=== PATIENT | male | born 1960 | race Caucasian/White ===

== ENCOUNTER 2016-08-29 13:11 | Inpatient (IN) | payer BC ==
--- NOTE | ~2016-08-29 | DS ---
Discharge Summary [facility] [address] [place]. [address] NAME: STEPHAN SCOTT : 62 STATUS : DIS IN PAT#: [id number] AGE: 56 ADM/REG DATE : 08/29/16 MR#: [id number] REPORT SERV DATE: 09/03/16 DICTATED BY: MAYURI PANDYA DATE: 09/03/16 REPORT STATUS : Draft TRANSCRIBED BY: MODL DATE: 09/03/16 ADMISSION DATE: 08/29/2016 DISCHARGE DATE: 09/03/2016 CONSULTING PHYSICIAN: Dr. George for surgery. FINAL DIAGNOSES: 1. Uncontrolled diabetes, improved. 2. Right toe cellulitis with nondisplaced fracture of the first phalanx. 3. Chronic obstructive pulmonary disease. 4. Coronary artery disease with history of coronary artery bypass grafting. 5. Noncompliance. 6. Tobacco abuse. 7. Depression, anxiety, and mood disorder. 8. Gastroesophageal reflux disease and peptic ulcer disease. 9. Hyponatremia, improved. DIAGNOSTIC EXAMS: Chest x-ray showing prior CABG, otherwise negative portable chest. CAT scan of the abdomen and pelvis showing no acute GI or obstruction, some mild perinephric stranding, question significant, diverticulosis of the sigmoid and descending colon with some smooth muscle hypertrophy, prostate mildly enlarged. Lumbar spine showing normal findings. Right toe x-ray mild degenerative change. No change from December 11. MRI showing cellulitis with no evidence of osteomyelitis or abscess. Possible foreign body in the skin adjacent into the second distal phalanx. Nondisplaced fracture intra-articular distal first proximal phalanx. Mild marrow edema, likely subacute, tenosynovitis flexor hallucis and flexor digitorum tendons. HOSPITAL COURSE: Please refer to the H and P done by Dr. Lara dated on 08/29/2016. Briefly, this is a 56-year-old male who comes in with weakness. The patient was recently here and discharged, and at that time, the patient was given prescriptions for Lortab. It was written in the note of Dr. Hare that the patient got that prescription from [place] in 06/30/2016. On 06/16/2016, 60 tablets of oxycodone, and when he got discharged 07/08/2016, the patient had 14 pills of Lortab 7.5. The patient is also on Seroquel and Klonopin as prescribed by Dr. Lai at that time. The patient reported of feeling dizzy and falling for the past three days and now having severe pain in his back, went to the emergency room and was found to have elevated sugars. The patient was admitted by Dr. Lara, and we adjusted his medications. We got educator senior clinical involved, and we were able to get that the patient is very noncompliant with his diabetic medications and his other medications. When we placed him back on his blood pressure medication, we found that his blood pressure goes down. He also refused to quit smoking, and he kept on going out of his room without any significant pain. Yet when he comes back to his room he wants his pain medication adjusted. The patient was complaining about his right foot, and we did all the above tests, and it shows that the patient probably has subacute fracture and tenosynovitis of the right first toe. We got Dr. Herrera involved who was being covered by Dr. George and they do not believe that any surgery is needed, but agreed with antibiotics for the cellulitis. Yet, despite all this pain that the patient is subjectively telling me, he is able to walk around Discharge Summary [place] [id number] [place]. [address] NAME: STEPHAN SCOTT : 62 STATUS : DIS IN [facility]#: [id number] AGE: 56 ADM/REG DATE : 08/29/16 MR#: [id number] REPORT SERV DATE: 09/03/16 DICTATED BY: MAYURI PANDYA DATE: 09/03/16 REPORT STATUS : Draft TRANSCRIBED BY: RANDY DATE: 09/03/16 even out of the floor without any problems. We got clearance from surgery for discharge, so we discharged the patient with the above diagnoses. He will be on the following medications aspirin 81 mg a day, Lipitor 40 mg at bedtime, Plavix 75 mg a day, Neurontin 600 mg three times a day, NovoLog per sliding scale, Levemir 50 units twice a day, multivitamin once a day, Protonix 40 mg a day, Klonopin 1 mg twice a day, metformin 1000 mg twice a day, Symbicort two puffs twice a day p.r.n. albuterol two puffs as needed, Coreg 25 mg twice a day, nitroglycerin p.r.n., and a prescription for Duricef 1 g p.o. b.i.d. for one more week. He will be off his Monoket and lisinopril. He will follow up with Dr. March. Hopefully, that he was adherent on his medications and followup, but basing from his track record his chances for readmission is quite high. BETH/RANDY Mayuri Pandya M.D. / [id number] CC: Gail Gan MD
--- NOTE | ~2016-08-29 | HP ---
History And Physical [place] [address] [facility] [place]. [address] NAME: STEPHAN LEMONS : 62 STATUS : ADM Jd PAT#: [id number] AGE: 56 ADM/REG DATE : 08/29/16 MR#: [id number] REPORT SERV DATE: 08/29/16 DICTATED BY: DATE: REPORT STATUS : Draft TRANSCRIBED BY: MODL DATE: 08/29/16 DATE OF ADMISSION: 08/29/2016 The patient is admitted to the [facility] Hospitalist Service. CHIEF COMPLAINT: Weakness, falls, pain. HISTORY OF PRESENT ILLNESS: Mr. Lemons is a 56-year-old white male with a history of uncontrolled diabetes and multiple admissions for sequelae thereof. He presents to the emergency department complaining of multiple falls over the past three days. He reports extreme pain from these falls, particularly in his lumbar spine and bilateral buttocks. He has been largely bedbound because of the pain for the past three days, but noticed that when he would attempt to ambulate to the kitchen to prepare meals for himself, he would have recurrent falls. He was also noticing some left lower quadrant pain and possible hematochezia. He has been extremely thirsty and also has become incontinent of urine, which is a new issue for him. He has had some nausea and vomiting, although currently is hungry and demanding food in the emergency department. He denies any chest pain or shortness of breath. He has not had any fevers or chills. He has had some left lower quadrant pain, but denies any changes in his bowel movements, such as constipation, diarrhea, or hematochezia or melena. In the emergency department, his blood sugar is 686, and he is referred to the Hospitalist Service for management. The patient was questioned extensively about his recent insulin usage and potential noncompliance as he does have a history of this. However, he states currently he is following up with Dr. Elliot March at [facility] and taking his insulins and metformin as prescribed. REVIEW OF SYSTEMS: Full 14-point review of systems is negative, except as dictated in the history of present illness. PAST MEDICAL HISTORY: Extensive and includes: 1. Uncontrolled insulin-dependent diabetes mellitus type 2 with hemoglobin A1c values ranging from 11-14 over the past year. 2. COPD with ongoing tobacco dependence. 3. Coronary artery disease with history of CABG in 2006 and history of multiple percutaneous interventions. He has a history of chronically occluded LAD graft. 4. Depression and anxiety-treated by Dr. Klaus Lai during recent admission. 5. Gastroesophageal reflux disease. 6. Congestive heart failure. 7. Peptic ulcer disease. 8. Scoliosis. 9. Nephrolithiasis and prior lithotripsy. 10.History of diverticulitis. History And Physical [address] [address] NAME: STEPHAN LEMONS : 62 STATUS : ADM Jd PAT#: [id number] AGE: 56 ADM/REG DATE : 08/29/16 MR#: [id number] REPORT SERV DATE: 08/29/16 DICTATED BY: DATE: REPORT STATUS : Draft TRANSCRIBED BY: MODVicki DATE: 08/29/16 11.Frequent urinary tract infections. 12.Bilateral lower extremity ulcers-seen previously by Dr. Herrera. 13.History of gastroparesis. PAST SURGICAL HISTORY: Includes CABG, percutaneous interventions, and prior incision and drainage of a right foot abscess. ALLERGIES: INCLUDE IV CONTRAST, MORPHINE, NONSTEROIDAL ANTI-INFLAMMATORY DRUGS. MEDICATIONS: Full medication list is pending. Off the top of his head, the patient recalls that he takes Plavix and aspirin as well as Lantus 50 units subcutaneously twice a day. Humalog 25 units subcutaneously t.i.d. and metformin 1000 mg p.o. twice a day. SOCIAL HISTORY: The patient has been recently homeless, although currently is living with a roommate. He has been twice. He has three children, range in age from 27-38 years old, but he is not in close contact with any of them. He is a retired registered physical therapist. He ambulates with assistance of a cane. FAMILY HISTORY: Pertinent for diabetes and heart disease. His mother of leukemia when the patient was 19 years old. PHYSICAL EXAMINATION: VITAL SIGNS: Blood pressure 113/81, temperature 98.1, pulse 102, respirations 18, and oxygen saturations 98% on room air. GENERAL: This is a thin, chronically ill-appearing, poorly groomed white male, in no acute distress. Alert and oriented in three dimensions, requesting food and pain medications. HEENT: Normocephalic, atraumatic. Pupils are equally round and reactive to light. No scleral icterus. No conjunctival pallor. Oropharynx is dry with tacky mucosa, but no posterior pharyngeal erythema nor exudate. Poor dentition. NECK: Supple with no jugular venous distention. No lymphadenopathy. No bruits. CARDIOVASCULAR: Regular tachycardia. No murmurs, rubs, or gallops. LUNGS: Clear to auscultation bilaterally. No wheezes, crackles nor rhonchi. ABDOMEN: Soft with guarding in the left lower quadrant, but no tenderness to palpation or ulcer in the abdomen. Decreased bowel sounds x4 quadrants, but present. No obvious hepatosplenomegaly or suggestion of ascites. SKIN: Decreased skin turgor. No rash or skin breakdown. Multiple tattoos. EXTREMITIES: No cyanosis, clubbing, or edema. Marked muscle atrophy and wasting of the lower extremities. NEUROLOGIC: Cranial nerves II through XII were tested and are intact. Deep tendon reflexes 2+ bilateral in brachioradialis and patellar tendons. Sensation is diminished in bilateral lower extremities to fine touch and proprioception. Strength testing is limited by pain, particularly in the lumbar spine, and the patient has a positive straight leg raise test bilaterally. LABORATORY DATA: Urinalysis is negative, except for trace ketones. CBC shows white count of 11.6, hemoglobin 14.5, hematocrit 42.2, platelets 12.7. Comprehensive metabolic panel with sodium 127, potassium 4.3, chloride 91, bicarbonate 26, BUN 16, creatinine 1.2, glucose 680, History And Physical [place] [id number] [facility] [place]. [address] NAME: STEPHAN LEMONS : 62 STATUS : ADM Jd PAT#: [id number] AGE: 56 ADM/REG DATE : 08/29/16 MR#: [id number] REPORT SERV DATE: 08/29/16 DICTATED BY: DATE: REPORT STATUS : Draft TRANSCRIBED BY: MODL DATE: 08/29/16 calcium 8.6, total protein normal, albumin 2.6. Liver enzymes normal with the exception of alkaline phosphatase elevated at 167. IMPRESSION: 1. Uncontrolled diabetes with hyperglycemia, no evidence of diabetic ketoacidosis. 2. Hyponatremia due to hyperglycemia. 3. Recent increase in falls, with back pain and tenderness to palpation of the lumbar spine-rule out vertebral fracture or possible spinal stenosis. 4. New urinary incontinence-suspect due to hyperglycemia or possibly neurogenic bladder. Evaluate for spinal etiologies above. 5. Left lower quadrant pain with leukocytosis and history of diverticulitis. Also possible history of hematochezia preceding admission per patient-rule out diverticulitis at present. 6. Extensive medical history as outlined above. PLAN: 1. The patient is admitted in observation status to [address] [place] [address], [address] Dr. Stefano Lara. 2. IV fluids and reinstitute long-acting and short-acting insulins. Check a hemoglobin A1c. 3. Labs with electrolyte replacement as hyperglycemia is corrected. 4. Low dose of oral pain medications-tramadol and Percocet. 5. Check plain films of the lumbar spine. 6. Check CT of the abdomen and pelvis. 7. We will reconcile remaining home medications when pharmacy has compiled the list. JACOBO/RANDY Stefano Lara M.D. / [id number] CC: Gail Schmitt MD
[~2016-08-29 13:11] MED LIST: *UNABLE3; ADVAIR250 INH; AMIT50 PO; AMOXIL500 MG PO; ASA5GR PO; ASAB PO; ASPIRIN; AT25 PO; AUG875 PO; CELEXA20 PO; CIP5 PO; COREG12 PO; COREG25 PO; DIL2TAB; DIL2TAB PO; DURA50 TOP; EFFIENT10 PO; FLAG500TAB PO; GLUCOPHAGE1000 MG PO; GLUCPH PO; HALF81 PO; HUMALOG SC; HUMULIN R1 ML SC; IMDUR60 PO; INSNOV7030 SC; ISORDIL10 PO; ISORDTITRA PO; ISOSORB DIN30 MG PO; ISOSORBIDE PO; KLONO1 PO; KLONO2 PO; LANTUS SC; LEVAQUIN750 MG PO; LEVEMFLXPN SC; LEVEMIR SC; LEVSINTAB PO; LEVSINTAB PO/SL; LIOR10 PO; LIPITOR PO; LIPITOR10 PO; LIPITOR20 PO; LIPITOR40 PO; LISINOPRIL; LISINOPRIL PO; LOP100 PO; LOP25 PO; LOP50 PO; LORTAB10 PO; LYRICA75 PO; METAMUCIL CAN7 OZ; METAMUCIL CAN7 OZ PO; METHOC750B PO; MONOKET20 PO; MULTIVIT/MIN PO; MULTIVITAMI1 PO; MVI PO; NEUR300 PO; NEUR600 PO; NEXIUM40 PO; NITROQUICK0.4 MG SL; NITROSTAT0.4 MG PO; NITROSTAT0.4 MG SL; NORCO1 TA1 PO; NORCO1 TA2 PO; NORCO1 TAB PO; NOVOLOG SC; PCET PO; PEP20 PO; PERCOCET1 TA4 PO; PLAVIX PO; PR25 PO; PRAVAC PO; PRIN10 PO; PRIN2.5 PO; PRIN20 PO; PRIN5 PO; PROAIR HFA INH; PROVHFA INH; RANEXA1000 MG PO; ROXICODONE15 MG PO; SEROQUEL50 MG PO; SUCR PO; SYMBICORT 160/41 INH INH; SYMBICORT 80/4.1 INH INH; T PO; TRAZODONE150 MG PO; TRICOR145 PO; ULTRAM50 PO; XANAX XR1 MG PO; XANAX1 MG PO; ZESTRIL10 MG PO; ZESTRIL20 MG PO; ZOCOR20 PO; ZOCOR40 PO; ZOFRAN4 PO; ZYVOXPO PO; [UNRECOGNIZED DRUG - CODE] T; [UNRECOGNIZED DRUG - CODE] TOP; [UNRECOGNIZED DRUG - OTHER] PO
[2016-08-29 15:23] LABS: ASCORBIC ACID (UR NOT ORDER) NEG (NEG); BILIRUBIN, URINE NEGATIVE (NEG); ER URINALYSIS TAT 0 Hrs 12 Mins; KETONE, URINE TRACE MG/DL (NEG); LEUKOCYTE ESTERASE(NOT OR NEG (NEG); NITRITE (URINE) NEG (NEG); WBC (NOT ORDERED) (RFLEX) 5 (0-5)
[2016-08-29 15:26] LABS: BASOPHILS 0.2 %; BASOPHILS ABSOLUTE 0.02 10/3/uL (0.0-0.16); EOSINOPHILS 0.1 %; EOSINOPHILS ABSOLUTE 0.01 10/3/uL (0.0-0.53); HEMATOCRIT 42.2 % (40.0-51.0); HEMOGLOBIN 14.5 g/dL (13.6-17.8); IMMATURE GRANULOCYTES 0.3 %; IMMATURE GRANULOCYTES ABSOLUTE 0.04 10/3/uL (0.0-0.11); LYMPHOCYTES 8.9 %; LYMPHOCYTES ABSOLUTE 1.03 10/3/uL (0.67-4.30); MEAN CORPUS HGB CONC 34.4 g/dL (32.0-36.0); MEAN CORPUSCULAR HEMOGLOB 30.7 pg (26.0-34.0); MEAN CORPUSCULAR VOLUME 89.2 fL (80-100); MONOCYTES 5.2 %; NEUTROPHILS 85.3 %; NEUTROPHILS ABSOLUTE 9.88 10/3/uL (2.02-8.40); PLATELET COUNT 228 10/3/uL (150-400); RBC DISTRIBUTION WIDTH 12.7 % (12.0-16.0); RED CELL COUNT 4.73 10/6/uL (4.7-6.1)
[2016-08-29 15:27] LABS: ER CBC TAT 0 Hrs 21 Mins; MANUAL DIFF NO %; WHITE BLOOD CELLS 11.6 10/3/uL (4.5-10.5)
[2016-08-29 15:35] LABS: CALCIUM, SERUM 8.6 MG/DL (8.5-10.4); CO2 (CARBON DIOXIDE) 26 MMOL/L (24-34); CREATININE 1.21 MG/DL (0.70-1.30); GFR AFRICAN AMERICAN 78 ML/MIN (>=60); GFR NON AFRICAN AMERICAN 67 ML/MIN (>=60); POTASSIUM, SERUM 4.3 MMOL/L (3.5-5.3); SGOT(AST) 7 U/L (5-40); SGPT(ALT) 17 U/L (5-65); TOTAL BILIRUBIN 0.4 MG/DL (0-1.2); TOTAL PROTEIN 7.4 G/DL (6.0-8.5)
[2016-08-29 15:38] LABS: A/G RATIO 0.5 (0.7-1.9); ALBUMIN 2.6 G/DL (3.5-5.0); ALKALINE PHOSPHATASE 167 U/L (45-117); BUN (BLOOD UREA NITROGEN) 16 MG/DL (6-23); CHLORIDE, SERUM 91 MMOL/L (96-112); GLOBULIN 4.8 G/DL (2.5-4.1); GLUCOSE, SERUM 680 MG/DL (60-99); SODIUM, SERUM 127 MMOL/L (135-148)
[2016-08-29] MEDS ORDERED: PROTONIX PO (16:49)
[2016-08-29] MEDS ORDERED: SYMBICORT 80/4.1 INH INH (16:52)
[2016-08-29] MEDS ORDERED: MONOKET20 PO (16:56)
[2016-08-29] MEDS ORDERED: COREG25 PO (16:57)
[2016-08-29] MEDS ORDERED: NITROSTAT0.4 MG SL (16:57)
[2016-08-30 05:34] LABS: BASOPHILS 0.2 %; BASOPHILS ABSOLUTE 0.02 10/3/uL (0.0-0.16); HEMOGLOBIN 11.6 g/dL (13.6-17.8); IMMATURE GRANULOCYTES 0.4 %; IMMATURE GRANULOCYTES ABSOLUTE 0.04 10/3/uL (0.0-0.11); LYMPHOCYTES 13.8 %; MEAN CORPUS HGB CONC 34.2 g/dL (32.0-36.0); MEAN CORPUSCULAR HEMOGLOB 30.1 pg (26.0-34.0); MEAN CORPUSCULAR VOLUME 88.1 fL (80-100); MEAN PLATELET VOLUME 10.8 fL (9.2-13.0); MONOCYTES ABSOLUTE 0.71 10/3/uL (0.21-1.20); NEUTROPHILS 77.6 %; NEUTROPHILS ABSOLUTE 7.85 10/3/uL (2.02-8.40); PLATELET COUNT 232 10/3/uL (150-400); RBC DISTRIBUTION WIDTH 12.7 % (12.0-16.0); RED CELL COUNT 3.85 10/6/uL (4.7-6.1); WHITE BLOOD CELLS 10.1 10/3/uL (4.5-10.5)
[2016-08-30 05:36] LABS: HEMATOCRIT 33.9 % (40.0-51.0); MANUAL DIFF NO %
[2016-08-30 05:48] LABS: BUN (BLOOD UREA NITROGEN) 16 MG/DL (6-23); CALCIUM, SERUM 8.2 MG/DL (8.5-10.4); CHLORIDE, SERUM 99 MMOL/L (96-112); CO2 (CARBON DIOXIDE) 24 MMOL/L (24-34); CREATININE 1.07 MG/DL (0.70-1.30); GFR AFRICAN AMERICAN 90 ML/MIN (>=60); GFR NON AFRICAN AMERICAN 78 ML/MIN (>=60); POTASSIUM, SERUM 3.9 MMOL/L (3.5-5.3); SODIUM, SERUM 132 MMOL/L (135-148)
[2016-08-30 05:50] LABS: CPK 105 U/L (0-200); GLUCOSE, SERUM 431 MG/DL (60-99)
[2016-08-30 07:08] LABS: SED RATE 92 MM/HR (0-15)
[2016-08-31 06:56] LABS: BASOPHILS 0.4 %; BASOPHILS ABSOLUTE 0.03 10/3/uL (0.0-0.16); EOSINOPHILS 2.1 %; EOSINOPHILS ABSOLUTE 0.18 10/3/uL (0.0-0.53); HEMATOCRIT 33.7 % (40.0-51.0); HEMOGLOBIN 11.4 g/dL (13.6-17.8); IMMATURE GRANULOCYTES 0.5 %; IMMATURE GRANULOCYTES ABSOLUTE 0.04 10/3/uL (0.0-0.11); LYMPHOCYTES 17.9 %; MEAN CORPUS HGB CONC 33.8 g/dL (32.0-36.0); MEAN CORPUSCULAR HEMOGLOB 30.3 pg (26.0-34.0); MEAN CORPUSCULAR VOLUME 89.6 fL (80-100); MEAN PLATELET VOLUME 10.9 fL (9.2-13.0); MONOCYTES 7.5 %; MONOCYTES ABSOLUTE 0.63 10/3/uL (0.21-1.20); NEUTROPHILS 71.6 %; PLATELET COUNT 223 10/3/uL (150-400); RBC DISTRIBUTION WIDTH 12.7 % (12.0-16.0); RED CELL COUNT 3.76 10/6/uL (4.7-6.1); WHITE BLOOD CELLS 8.4 10/3/uL (4.5-10.5)
[2016-08-31 06:57] LABS: MANUAL DIFF NO %
[2016-08-31 07:23] LABS: A/G RATIO 0.5 (0.7-1.9); ALBUMIN 2.1 G/DL (3.5-5.0); BUN (BLOOD UREA NITROGEN) 17 MG/DL (6-23); CALCIUM, SERUM 8.1 MG/DL (8.5-10.4); CHLORIDE, SERUM 97 MMOL/L (96-112); CO2 (CARBON DIOXIDE) 21 MMOL/L (24-34); CREATININE 1.27 MG/DL (0.70-1.30); GFR AFRICAN AMERICAN 73 ML/MIN (>=60); GFR NON AFRICAN AMERICAN 63 ML/MIN (>=60); GLOBULIN 4.4 G/DL (2.5-4.1); POTASSIUM, SERUM 4.5 MMOL/L (3.5-5.3); SGOT(AST) 12 U/L (5-40); SGPT(ALT) 15 U/L (5-65); SODIUM, SERUM 129 MMOL/L (135-148); TOTAL BILIRUBIN 0.2 MG/DL (0-1.2); TOTAL PROTEIN 6.5 G/DL (6.0-8.5)
[2016-08-31 07:24] LABS: ALKALINE PHOSPHATASE 142 U/L (45-117); GLUCOSE, SERUM 550 MG/DL (60-99)
[2016-08-31 15:48] LABS: PROCALCITONIN 0.16 ng/mL (<0.5)
[2016-09-01 07:38] LABS: BUN (BLOOD UREA NITROGEN) 15 MG/DL (6-23); CALCIUM, SERUM 8.4 MG/DL (8.5-10.4); CHLORIDE, SERUM 108 MMOL/L (96-112); CO2 (CARBON DIOXIDE) 25 MMOL/L (24-34); CREATININE 1.01 MG/DL (0.70-1.30); GFR AFRICAN AMERICAN 97 ML/MIN (>=60); GFR NON AFRICAN AMERICAN 83 ML/MIN (>=60); GLUCOSE, SERUM 202 MG/DL (60-99); POTASSIUM, SERUM 4.1 MMOL/L (3.5-5.3); SODIUM, SERUM 141 MMOL/L (135-148)
[2016-09-03] MEDS ORDERED: SEROQUEL50 MG PO (08:52)
[2016-09-03] MEDS ORDERED: DURICEF PO (08:54)
== END 2016-09-03 10:59 | disposition home or self-care (01) | DRG 638 ==
LOC: ER 13:11 → 5SO 16:58
PROVIDERS: Emergency Medicine; Hospitalist; Internal Medicine
DX: E11.65 Type 2 diabetes mellitus with hyperglycemia (principal); E87.1 Hypo-osmolality and hyponatremia; I50.9 Heart failure, unspecified; N39.0 Urinary tract infection, site not specified; L03.031 Cellulitis of right toe; Z91.19 Patient's noncompliance with other medical treatment and regimen; S92.401B Displaced unspecified fracture of right great toe, initial encounter for open fracture; J44.9 Chronic obstructive pulmonary disease, unspecified; F17.210 Nicotine dependence, cigarettes, uncomplicated; I25.10 Atherosclerotic heart disease of native coronary artery without angina pectoris; F32.9 Major depressive disorder, single episode, unspecified; F41.9 Anxiety disorder, unspecified; K21.9 Gastro-esophageal reflux disease without esophagitis; M41.9 Scoliosis, unspecified; M65.9 Synovitis and tenosynovitis, unspecified; Z95.1 Presence of aortocoronary bypass graft; Z87.442 Personal history of urinary calculi; Z91.81 History of falling; Z87.440 Personal history of urinary (tract) infections; Z91.041 Radiographic dye allergy status; Z88.5 Allergy status to narcotic agent; Z88.8 Allergy status to other drugs, medicaments and biological substances; Z79.02 Long term (current) use of antithrombotics/antiplatelets; Z79.82 Long term (current) use of aspirin; Z79.4 Long term (current) use of insulin; Z79.84 Long term (current) use of oral hypoglycemic drugs
CPT/HCPCS: 71010; 72100; 73660-RT; 73720-RT; 74176; 80048; 80053; 81001; 82550; 82962; 83036; 83735; 84145; 85025; 85652; 93005; 96374; 99285; A9270-GY; A9577; J0690; J2405; J2800

== ENCOUNTER 2016-11-28 15:01 | Inpatient (IN) | payer BC ==
--- NOTE | ~2016-11-28 | HP ---
History And Physical [address] [place]. [address] NAME: STEPHAN SCOTT : 62 STATUS : ADM IN [facility]#: [id number] AGE: 56 ADM/REG DATE : 11/28/16 MR#: [id number] REPORT SERV DATE: 11/29/16 DICTATED BY: ESPERANZA DIAS DATE: 11/28/16 REPORT STATUS : Draft TRANSCRIBED BY: MODVicki DATE: 11/28/16 DATE OF ADMISSION: 11/28/2016 CHIEF COMPLAINT: A 56-year-old male presenting with left leg swelling and boil, also chest pain. HISTORY OF PRESENT ILLNESS: The patient's history was obtained through an interview with the patient, coupled with review of [facility] medical records. About five days, the patient has had a left calf boil arise, it has become increasingly painful. He wonders if he had a spider bite that led to this. He describes it as an aching, throbbing quality, that "hurts like hell." He cannot bear weight now, 9/10 severity that is constant. Then, on the day prior to admission, developed chest pain as well. He has a constant pressure like discomfort in the middle of his chest, but then he also has a severe sharp pain, "like a knife going through me" from middle of his chest to his left shoulder blade exacerbated by breathing. He has a 10/10 pain that is sharp. In his chest, he has dyspnea on exertion, diaphoresis, but no fevers or chills. He has had significant nausea, but only one episode of vomiting. He admits his blood sugars are poorly controlled with most blood sugars between 250 and 350. REVIEW OF SYSTEMS: Otherwise, a 14-point review of systems was obtained and was negative. PAST MEDICAL HISTORY: 1. Coronary artery disease, status post multiple stents, CABG in 2006, and occluded graft in 2011. 2. COPD. Congestive heart failure. 3. Nephrolithiasis with history of lithotripsy. 4. Peptic ulcer disease. 5. Gastroparesis. 6. Diabetes. Hemoglobin A1c of 14.7 in August 2016. 7. Diverticulitis. 8. Depression and anxiety. 9. Headaches. 10.Hypertension. 11.Elevated cholesterol. 12.Scoliosis. 13.Bilateral leg ulcers. PAST SURGICAL HISTORY: History And Physical [address] [place]. [address] NAME: STEPHAN SCOTT : 62 STATUS : ADM IN PAT#: [id number] AGE: 56 ADM/REG DATE : 11/28/16 MR#: [id number] REPORT SERV DATE: 11/29/16 DICTATED BY: ESPERANZA DIAS DATE: 11/28/16 REPORT STATUS : Draft TRANSCRIBED BY: MODL DATE: 11/28/16 1. CABG in 2006. 2. Right foot abscess drainage by Dr. Herrera. ALLERGIES: NONSTEROIDAL ANTI-INFLAMMATORY DRUGS, IV CONTRAST, AND MORPHINE. SOCIAL HISTORY: The patient is a smoker. Does not drink alcohol. He is homeless. Living in a tent right now in [place], [place]. Retired [employer]. Ambulates with a cane. Has three children. He has been a x2. FAMILY HISTORY: Diabetes, heart disease. Mother of leukemia when patient was only 19 years old. CURRENT MEDICATIONS: Include albuterol inhaler, aspirin 325 mg p.o. daily, Symbicort inhaled twice a day, Rolaids, Coreg 50 mg p.o. b.i.d., Klonopin 1 mg p.o. b.i.d., Plavix 75 mg p.o. daily, vitamin B12, Neurontin 600 mg p.o. t.i.d., Lantus 25 units subcutaneous twice a day, sliding-scale insulin, 25 units of Humalog with each meal as well, isosorbide mononitrate 20 mg p.o. b.i.d., lisinopril 20 mg p.o. daily, metformin 1000 mg p.o. b.i.d., Reglan 10 mg before each meal, multivitamin, Roxicodone 15 mg p.o. b.i.d., Protonix 40 mg p.o. daily, Phenergan, cholesterol medication, and Ambien at bedtime. PHYSICAL EXAMINATION: VITAL SIGNS: Temperature 98.0, pulse 110, blood pressure 139/77, respiratory rate 18, and O2 saturation 97% on room air. GENERAL: A pleasant, cooperative male, in evidence of distress secondary to his leg pain. HEENT: Pupils equal, round, and reactive to light. No conjunctival pallor. No scleral icterus. Nares are patent. Oropharynx is clear of obstruction. Moist mucous membranes. NECK: Trachea midline. No thyromegaly. LYMPH: No cervical lymphadenopathy. No supraclavicular lymphadenopathy. No inguinal lymphadenopathy. RESPIRATORY: Clear to auscultation at bases. No wheezes, rales, or rhonchi. Normal respiratory effort. CARDIOVASCULAR: Tachycardic. Regular rhythm. No murmurs, rubs, or gallops. The patient has swelling and edema around his left leg out of proportion to his right. ABDOMEN: Soft, nontender, nondistended. Normal bowel sounds auscultated throughout. No hepatosplenomegaly. DERMATOLOGICAL: Behind patient's left calf, there is about a 2-3 cm diameter raised erythematous boil with underlying fluctuance which could be consistent with abscess formation. It is very tender to palpation. No purulent drainage. Otherwise, warm, dry extremities. No pallor. No cyanosis. PSYCHIATRIC: Normal affect. Good mood. Alert and oriented x3. LABORATORY DATA: White blood cell count 7.8, hemoglobin 14, hematocrit 43, and platelets 325. Sodium 138, potassium 4.6, chloride 104, bicarb 25, BUN 15, creatinine 1.13, glucose 441, troponin 0.04. INR 0.9. Urine drug screen negative. Urinalysis negative for infection. History And Physical [address] [address] NAME: STEPHAN SCOTT : 62 STATUS : ADM IN [facility]#: [id number] AGE: 56 ADM/REG DATE : 11/28/16 MR#: [id number] REPORT SERV DATE: 11/29/16 DICTATED BY: ESPERANZA DIAS DATE: 11/28/16 REPORT STATUS : Draft TRANSCRIBED BY: RANDY DATE: 11/28/16 STUDIES: 1. Chest x-ray by my own evaluation shows no acute cardiopulmonary process. 2. CT scan of the abdomen and pelvis shows hepatomegaly but nothing acute. ASSESSMENT AND PLAN: 1. Left calf abscess and cellulitis. Place on IV vancomycin. IV Zosyn. Consult Dr. Herrera, surgeon. 2. Chest pain. I would like to check a stat V/Q scan (an allergy to IV contrast) and also Doppler ultrasound of left lower extremity to rule out blood clots. Start empiric Lovenox therapeutic dosing now. If negative evaluation for pulmonary embolism, consider nuclear cardiac stress test (?). 3. Uncontrolled diabetes. Hemoglobin A1c of 14.7 in August 2016. Continue basal insulin, premeal insulin, and aggressive sliding scale insulin. 4. Homelessness. KPL/MODL Esperanza Dias M.D. / [id number] CC: MD Roberto Jones Jr., M.D.
--- NOTE | ~2016-11-28 | DS ---
Discharge Summary [facility] [address] [place]. [address] NAME: STEPHAN SCOTT : 62 STATUS : DIS IN PAT#: [id number] AGE: 56 ADM/REG DATE : 11/28/16 MR#: [id number] REPORT SERV DATE: 12/06/16 DICTATED BY: MAYURI HOLBROOK DATE: 12/03/16 REPORT STATUS : Draft TRANSCRIBED BY: MODVicki DATE: 12/03/16 ADMISSION DATE: 11/28/2016 DISCHARGE DATE: 12/03/2016 CONSULTANTS: Jay Herrera M.D., Wound Surgeon. DISCHARGE DIAGNOSES: 1. Abscess, left calf with methicillin sensitive Staph aureus, recurrent. 2. Drug-seeking behavior with a history of amphetamine abuse. 3. Mood disorder. 4. Superficial vein thrombosis, right leg. 5. Diabetes mellitus type 2 with A1c 11.5% and peripheral neuropathy. 6. Chronic obstructive pulmonary disease. 7. Previous renal stones, treated with ESWL. 8. Chronic pain syndrome involving back, abdomen, and neuropathy. 9. History of coronary disease and bypass. 10.Status post atypical chest pain. HISTORY: This patient presented to the emergency room at [facility] with complaints of chest pain and an abscess/boil on his left calf. The patient has had several prior hospitalizations here in the past for this left calf and has had incision and drainage with Dr. Jay Herrera previously. He also complained of a knife-like pain in the middle of his chest going through to his left shoulder blade exacerbated by taking a deep breath. He has a history of coronary bypass in 2006. He was referred to our team for inpatient care. Chest x-ray on admission only showed evidence of previous sternotomy. The ER did a CT scan of the abdomen and pelvis, which revealed no acute abnormalities. There is nonspecific hepatomegaly and a stable 9 mm dystrophic calcification on the anterior cortex of the upper pole of the left kidney. Our admitting partner sent him for a V/Q scan that was within normal limits. His cardiac enzymes were 0.04, 0.04, then went up to slightly elevated at 0.05, then back to normal at 0.03. Nuclear stress test on 11/30/2016, showed no ischemia, ejection fraction estimated to be at 47%. The patient's EKG revealed sinus tachycardia with some nonspecific T-wave abnormalities. The patient receive antibiotic coverage for the left leg abscess that initially included a combination of intravenous vancomycin and Zosyn. He was seen by Dr. Jay Herrera, who did incision and drainage of that left calf abscess on 11/30/2016. Culture grew out methicillin sensitive Staphylococcus aureus as it has on the last three times, it was cultured back in March and April of 2016. Dr. Herrera indicated that he felt the wound was making very good progress, wanted just to have local wound care, and follow him back in the [facility] within the week. The patient also had a bilateral venous Doppler on 11/29/2016, which showed no abnormalities in the left leg, but there was a superficial venous thrombus in the right leg in the short saphenous vein. Repeat venous Doppler three days later revealed stable small superficial Discharge Summary [place] [id number] [facility] [place]. [address] NAME: STEPHAN SCOTT : 62 STATUS : DIS IN PAT#: [id number] AGE: 56 ADM/REG DATE : 11/28/16 MR#: [id number] REPORT SERV DATE: 12/06/16 DICTATED BY: MAYURI HOLBROOK DATE: 12/03/16 REPORT STATUS : Draft TRANSCRIBED BY: RANDY DATE: 12/03/16 vein thrombus with no extension into the deep system. At each visit the patient was focused on asking for narcotics wanting intravenous Dilaudid for this leg wound even after it was looking very much improved. At one point, I told him I did not feel it needed intravenous narcotics anymore, he was very upset, he stated that he needs pain medicines on a regular basis. This type of pattern has been seen with him in the past. When he was not getting his requested Dilaudid, he was still being given the oxycodone because he stated that was a chronic medicine he had been on, however, he was very much more angry and impulsive. He had previously been up walking the halls going outside to smoke, having no difficulty. This was when his legs looked very inflamed even prior to the incision and drainage and immediately thereafter. Once, the leg was looking dramatically better when his Dilaudid was taken away, he stated that he needed the Dilaudid because he could not walk, yet he was walking up to the nurses station to ask for the Dilaudid, and when they would not give it to him, he would have angry outbursts, he even one time was crawling on the floor saying I cannot walk then he got up and walked. He removed his packing and dressing from the wound and would not let the nurses re-dress it. I looked at his wound, so did Dr. Herrera, on 12/02/2016, we both thought it was making excellent progress and I told the patient that I was not going to increase his narcotics. Case management was asked to help him get a followup appointment with [facility], as he states that is where he has gone for his long-term care, and he is to have a followup appointment with Dr. Jay Herrera in the [facility] within the week. DISCHARGE MEDICATIONS: Aspirin 325 mg daily, carvedilol 25 mg b.i.d., Plavix 75 mg daily, vitamin B12 1000 mcg daily, gabapentin 600 mg t.i.d., Lantus 25 units twice a day, NovoLog level 3 a.c. and at bedtime, isosorbide mononitrate 20 mg b.i.d., lisinopril 20 mg daily, Protonix 40 mg at bedtime which is a chronic medicine for him, Zocor 20 mg at bedtime, Klonopin 1 mg b.i.d. which is a chronic medicine for him, metformin 1000 mg b.i.d. (his creatinine 1.2), Tylenol 650 q.4 hours p.r.n. mild pain, nitroglycerin sublingual 0.4 mg p.r.n. chest pain, Roxicodone 15 mg p.o. t.i.d. p.r.n. severe pain #20 no refills, albuterol MDI two puffs q.i.d. p.r.n. shortness of breath, cefadroxil 1000 mg b.i.d. for seven days, Serevent a puff q.12 hours (this is what his [facility] preferred instead of Symbicort which they would not approve otherwise). I spent 28 minutes today with the patient and with discharge planning. DICTATED BY: Gail Tate/RANDY Mayuri Holbrook M.D. / [id number] Discharge Summary [place] [address] [place]. [address] NAME: STEPHAN SCOTT : 62 STATUS : DIS IN PAT#: [id number] AGE: 56 ADM/REG DATE : 11/28/16 MR#: [id number] REPORT SERV DATE: 12/06/16 DICTATED BY: MAYURI HOLBROOK DATE: 12/03/16 REPORT STATUS : Draft TRANSCRIBED BY: MODL DATE: 12/03/16 CC: Gail Tate Jr., M.D. John Gwin Jr., M.D. [facility]
--- NOTE | ~2016-11-28 | OP ---
Record Of Operation [facility] [address] [place]. [address] NAME: STEPHAN SCOTT : 62 STATUS : ADM IN [facility]#: [id number] AGE: 56 ADM/REG DATE : 11/28/16 MR#: [id number] REPORT SERV DATE: 11/30/16 DICTATED BY: PAUL DEJESUS JR. DATE: 11/30/16 REPORT STATUS : Draft TRANSCRIBED BY: MODL DATE: 11/30/16 DATE OF PROCEDURE: 11/30/2016 PROCEDURE: Incision and drainage of left thigh. PREOPERATIVE DIAGNOSIS: Left thigh abscess. POSTOPERATIVE DIAGNOSIS: Left thigh abscess. ANESTHESIA: Local. INDICATIONS: The patient presented with an area of fluctuance and necrosis of the thigh, possible insect bite with abscess. Incision and drainage is indicated. DESCRIPTION OF PROCEDURE: The area was prepped with Hibiclens, he was infiltrated with 1% lidocaine. With a 10-blade, incision was made overlying the area of fluctuance. Cavity was entered. Purulent material was obtained. It was submitted for culture. Some nonviable tissue was excised. Wound was irrigated with wound cleanser, was packed with Aquacel Ag rope. Wound size was 3.8 x 1.1 post I and D. He tolerated it well. CHECO/RANDY Paul Dejesus Jr., M.D. / [id number] CC: Rafiq Holbrook M.D.
[~2016-11-28 15:01] MED LIST changes: +DURICEF PO; +PROTONIX PO
[2016-11-28 15:46] LABS: BASOPHILS 0.5 %; BASOPHILS ABSOLUTE 0.04 10/3/uL (0.0-0.16); EOSINOPHILS ABSOLUTE 0.16 10/3/uL (0.0-0.53); ER CBC TAT 0 Hrs 12 Mins; IMMATURE GRANULOCYTES 1.4 %; IMMATURE GRANULOCYTES ABSOLUTE 0.11 10/3/uL (0.0-0.11); LYMPHOCYTES 30.2 %; LYMPHOCYTES ABSOLUTE 2.37 10/3/uL (0.67-4.30); MEAN CORPUS HGB CONC 33.3 g/dL (32.0-36.0); MEAN CORPUSCULAR HEMOGLOB 29.4 pg (26.0-34.0); MEAN CORPUSCULAR VOLUME 88.5 fL (80-100); MEAN PLATELET VOLUME 10.4 fL (9.2-13.0); MONOCYTES ABSOLUTE 0.31 10/3/uL (0.21-1.20); NEUTROPHILS 61.9 %; NEUTROPHILS ABSOLUTE 4.85 10/3/uL (2.02-8.40); WHITE BLOOD CELLS 7.8 10/3/uL (4.5-10.5)
[2016-11-28 16:01] LABS: HEMOGLOBIN 14.3 g/dL (13.6-17.8); MANUAL DIFF NO %; PLATELET COUNT 325 10/3/uL (150-400); RED CELL COUNT 4.86 10/6/uL (4.7-6.1)
[2016-11-28 16:04] LABS: BUN (BLOOD UREA NITROGEN) 15 MG/DL (6-23); CALCIUM, SERUM 8.9 MG/DL (8.5-10.4); CHEST PAIN PROFILE TAT 0 Hrs 30 Mins; CHLORIDE, SERUM 104 MMOL/L (96-112); CO2 (CARBON DIOXIDE) 25 MMOL/L (24-34); CREATININE 1.13 MG/DL (0.70-1.30); GFR AFRICAN AMERICAN 84 ML/MIN (>=60); GFR NON AFRICAN AMERICAN 73 ML/MIN (>=60); SODIUM, SERUM 138 MMOL/L (135-148); TROPONIN I 0.04 NG/ML (<0.05)
[2016-11-28 16:05] LABS: GLUCOSE, SERUM 411 MG/DL (60-99); POTASSIUM, SERUM 4.6 MMOL/L (3.5-5.3)
[2016-11-28 16:10] LABS: INTERNATIONAL NORMAL RATI 0.9 UNITS (-); PARTIAL THROMBO TIME 25.8 SEC (22.5-37.2); PROTIME (NOT ORD) 11.8 SEC (12.0-14.5)
[2016-11-28 17:15] LABS: ASCORBIC ACID (UR NOT ORDER) NEG (NEG); BILIRUBIN, URINE NEGATIVE (NEG); ER URINALYSIS TAT 0 Hrs 07 Mins; KETONE, URINE NEGATIVE (NEG); LEUKOCYTE ESTERASE(NOT OR NEG (NEG); NITRITE (URINE) NEG (NEG); WBC (NOT ORDERED) (RFLEX) 1 (0-5)
[2016-11-28 17:33] LABS: AMPHETAMINES (NOT ORD) NEG (NEG); BENZODIAZEPINES (NOT ORD) NEG (NEG); CANNABINOIDS (THC) NEG (NEG); COCAINE (NOT ORDERED) NEG (NEG); OPIATES NEG (NEG); PHENCYCLIDINE(PCP) NEG (NEG)
[2016-11-28 17:34] LABS: BARBITURATES (NOT ORDERED NEG (NEG); TRICYCLICS NEG (NEG)
[2016-11-28] MEDS ORDERED: NEUR300 PO (17:50)
[2016-11-28] MEDS ORDERED: KLONO1 PO (17:50)
[2016-11-28] MEDS ORDERED: ROXICODONE15 MG PO (17:51)
[2016-11-28] MEDS ORDERED: CENTRUM PO (17:53)
[2016-11-28] MEDS ORDERED: ADVIL PM1 CAP PO (17:53)
[2016-11-28] MEDS ORDERED: ROLAIDS PO (17:53)
[2016-11-28] MEDS ORDERED: CYANO1000T PO (17:54)
[2016-11-28] MEDS ORDERED: HUMALOG SC ×2 (17:55→18:06)
[2016-11-28] MEDS ORDERED: COREG25 PO (17:58)
[2016-11-28] MEDS ORDERED: LANTUS SC (17:58)
[2016-11-28] MEDS ORDERED: PROVHFA PO (17:59)
[2016-11-28] MEDS ORDERED: PROTONIX PO (17:59)
[2016-11-28] MEDS ORDERED: PR25 PO (17:59)
[2016-11-28] MEDS ORDERED: SYMBICORT 160/41 INH INH (18:00)
[2016-11-28] MEDS ORDERED: AMB10 PO (18:07)
[2016-11-28] MEDS ORDERED: REG PO (18:07)
[2016-11-28] MEDS ORDERED: MONOKET20 PO (18:08)
[2016-11-28] MEDS ORDERED: NITROSTAT0.4 MG SL (18:09)
[2016-11-28] MEDS ORDERED: PRIN20 PO ×2 (18:09→18:13)
[2016-11-28] MEDS ORDERED: GLUCOPHAGE1000 MG PO (18:09)
[2016-11-28] MEDS ORDERED: ASABAYER PO (18:10)
[2016-11-28] MEDS ORDERED: PLAVIX PO (18:10)
[2016-11-28] MEDS ORDERED: ZOCOR20 PO (18:11)
[2016-11-29 06:18] LABS: BASOPHILS 0.6 %; BASOPHILS ABSOLUTE 0.04 10/3/uL (0.0-0.16); EOSINOPHILS 3.1 %; HEMOGLOBIN 12.4 g/dL (13.6-17.8); IMMATURE GRANULOCYTES ABSOLUTE 0.13 10/3/uL (0.0-0.11); LYMPHOCYTES 34.2 %; LYMPHOCYTES ABSOLUTE 2.19 10/3/uL (0.67-4.30); MEAN CORPUS HGB CONC 33.2 g/dL (32.0-36.0); MEAN CORPUSCULAR HEMOGLOB 29.1 pg (26.0-34.0); MEAN CORPUSCULAR VOLUME 87.6 fL (80-100); MEAN PLATELET VOLUME 9.8 fL (9.2-13.0); MONOCYTES 6.3 %; NEUTROPHILS 53.8 %; NEUTROPHILS ABSOLUTE 3.44 10/3/uL (2.02-8.40); PLATELET COUNT 269 10/3/uL (150-400); RBC DISTRIBUTION WIDTH 14.2 % (12.0-16.0); RED CELL COUNT 4.26 10/6/uL (4.7-6.1); WHITE BLOOD CELLS 6.4 10/3/uL (4.5-10.5)
[2016-11-29 06:21] LABS: HEMATOCRIT 37.3 % (40.0-51.0); MANUAL DIFF NO %
[2016-11-29 06:24] LABS: PROTIME (NOT ORD) 12.9 SEC (12.0-14.5)
[2016-11-29 06:25] LABS: PARTIAL THROMBO TIME 28.1 SEC (22.5-37.2)
[2016-11-29 06:45] LABS: A/G RATIO 0.7 (0.7-1.9); ALBUMIN 2.5 G/DL (3.5-5.0); ALKALINE PHOSPHATASE 125 U/L (45-117); BUN (BLOOD UREA NITROGEN) 18 MG/DL (6-23); CALCIUM, SERUM 8.6 MG/DL (8.5-10.4); CHLORIDE, SERUM 103 MMOL/L (96-112); CK-MB 2.7 NG/ML; CO2 (CARBON DIOXIDE) 25 MMOL/L (24-34); CPK 70 U/L (0-200); GFR AFRICAN AMERICAN 87 ML/MIN (>=60); GFR NON AFRICAN AMERICAN 75 ML/MIN (>=60); GLOBULIN 3.7 G/DL (2.5-4.1); GLUCOSE, SERUM 342 MG/DL (60-99); POTASSIUM, SERUM 4.2 MMOL/L (3.5-5.3); SGOT(AST) 13 U/L (5-40); SGPT(ALT) 17 U/L (5-65); SODIUM, SERUM 137 MMOL/L (135-148); TOTAL BILIRUBIN 0.3 MG/DL (0-1.2); TOTAL PROTEIN 6.2 G/DL (6.0-8.5)
[2016-11-29 06:47] LABS: TROPONIN I 0.05 NG/ML (<0.05)
[2016-11-29 07:55] LABS: PROCALCITONIN <0.05 ng/mL (<0.5)
[2016-12-02 06:17] LABS: BUN (BLOOD UREA NITROGEN) 24 MG/DL (6-23); CALCIUM, SERUM 8.8 MG/DL (8.5-10.4); CHLORIDE, SERUM 106 MMOL/L (96-112); CO2 (CARBON DIOXIDE) 25 MMOL/L (24-34); GFR AFRICAN AMERICAN 78 ML/MIN (>=60); GFR NON AFRICAN AMERICAN 68 ML/MIN (>=60); GLUCOSE, SERUM 215 MG/DL (60-99); POTASSIUM, SERUM 4.7 MMOL/L (3.5-5.3); SODIUM, SERUM 138 MMOL/L (135-148)
[2016-12-02] MEDS ORDERED: DURICEF PO (16:50)
[2016-12-02] MEDS ORDERED: SEREVDISC INH (16:51)
== END 2016-12-03 07:46 | disposition home or self-care (01) | DRG 603 ==
LOC: ER 15:01 → 6NO 20:26
PROVIDERS: Emergency Medicine; Hospitalist
PROC: 0H9JXZZ Drainage of Left Upper Leg Skin, External Approach (ICD-10-PCS; principal; 2016-11-30)
DX: L03.116 Cellulitis of left lower limb (principal); E11.42 Type 2 diabetes mellitus with diabetic polyneuropathy; I82.811 Embolism and thrombosis of superficial veins of right lower extremity; E11.65 Type 2 diabetes mellitus with hyperglycemia; L02.416 Cutaneous abscess of left lower limb; F39 Unspecified mood [affective] disorder; B95.62 Methicillin resistant Staphylococcus aureus infection as the cause of diseases classified elsewhere; G89.4 Chronic pain syndrome; R07.89 Other chest pain; I10 Essential (primary) hypertension; F17.210 Nicotine dependence, cigarettes, uncomplicated; E78.00 Pure hypercholesterolemia, unspecified; F32.9 Major depressive disorder, single episode, unspecified; F41.9 Anxiety disorder, unspecified; Z59.0 Homelessness; Z79.82 Long term (current) use of aspirin; Z79.4 Long term (current) use of insulin; Z76.5 Malingerer [conscious simulation]; Z87.442 Personal history of urinary calculi; Z87.11 Personal history of peptic ulcer disease; Z95.1 Presence of aortocoronary bypass graft; Z83.3 Family history of diabetes mellitus; Z80.6 Family history of leukemia
CPT/HCPCS: 71010; 74176; 78452; 78582; 80048; 80053; 80202; 80305; 81001; 82550; 82553; 82962; 83036; 83605; 83735; 83880; 84145; 84443; 84484; 85025; 85610; 85730; 87070; 87077; 87186; 87205; 93005; 93017; 93970; 93971; 96374; 96375; 99285; A9270-GY; A9502; A9540; A9567; J0153; J0280; J0690; J1170; J1200; J2405; J2543; J3370